=== PATIENT | female | born 1960 | race Caucasian/White ===

== ENCOUNTER → 2020-03-18 | Outpatient (CLI) | payer SELFPAY | LOC: M LABSMTC 12:09 | PROVIDERS: ATTEND Pediatrics | DX: Z20.822 Contact with and (suspected) exposure to COVID-19 (principal) ==

== ENCOUNTER 2021-06-05 23:09 | Emergency (ER) | payer MEDICARE, SELFPAY ==
[~2021-06-05] VITALS: Ht 157.5 cm; Wt 90.9 kg
[2021-06-05] MEDS ORDERED: MIRT-60 PO (23:44)
[2021-06-05] MEDS ORDERED: CYMB60CA4 PO (23:44)
[2021-06-06 01:06] LABS: HEMATOCRIT 35.5 % (36.0-47.0); HEMOGLOBIN 11.5 g/dl (12.0-15.5); MEAN CORPUSCULAR HEMOGLOBIN 30.5 pg (27.0-33.0); MEAN CORPUSCULAR HGB CONC 32.4 g/dl (32.0-36.5); MEAN CORPUSCULAR VOLUME 94.2 fl (80.0-96.0); PLATELET COUNT, AUTOMATED 186 10^3/uL (150-450); RED BLOOD COUNT 3.77 10^6/uL (4.00-5.40); WHITE BLOOD COUNT 9.8 10^3/uL (4.0-10.0)
[2021-06-06 01:30] VITALS: BP 116/68
== END 2021-06-06 01:59 | disposition home or self-care (01) ==
LOC: M ED 23:09
DX: R42 Dizziness and giddiness (principal); E11.9 Type 2 diabetes mellitus without complications; Z98.84 Bariatric surgery status; Z79.899 Other long term (current) drug therapy; Z88.5 Allergy status to narcotic agent; F12.20 Cannabis dependence, uncomplicated; Z87.891 Personal history of nicotine dependence